=== PATIENT | female | born 1985 | race Two or more races ===

== ENCOUNTER → 2022-08-07 | Emergency (ER) | payer OTHER ==
[~2022-08-07] VITALS: Ht 162.6 cm; Wt 104.8 kg
[~2022-08-07] MED LIST: DICLOFENAC SODI75 MG PO
== END | disposition home or self-care (01) ==
LOC: ER 02:02
DX: S93.491A Sprain of other ligament of right ankle, initial encounter (principal); S93.691A Other sprain of right foot, initial encounter; X58.XXXA Exposure to other specified factors, initial encounter; Y93.89 Activity, other specified; Y92.9 Unspecified place or not applicable; M12.571 Traumatic arthropathy, right ankle and foot